=== PATIENT | female | born 1995 | race Two or more races ===

== ENCOUNTER → 2021-04-18 | Outpatient (CLI) | payer OTHER | END | disposition home or self-care (01) | LOC: PRENATAL 16:15 | PROVIDERS: ATTEND Obstetrics & Gynecology Maternal & Fetal Medicine | DX: Z36.89 Encounter for other specified antenatal screening (principal); O36.80X1 Pregnancy with inconclusive fetal viability, fetus 1; Z3A.13 13 weeks gestation of pregnancy ==

== ENCOUNTER 2021-05-30 13:08 | Outpatient (CLI) | payer OTHER | END 2021-05-30 14:09 | disposition home or self-care (01) | LOC: PRENATAL 13:08 | PROVIDERS: ATTEND Obstetrics & Gynecology Maternal & Fetal Medicine | DX: O35.0XX1 Maternal care for (suspected) central nervous system malformation in fetus, fetus 1 (principal); O35.3XX1 Maternal care for (suspected) damage to fetus from viral disease in mother, fetus 1; O98.512 Other viral diseases complicating pregnancy, second trimester; O28.1 Abnormal biochemical finding on antenatal screening of mother; Z36.89 Encounter for other specified antenatal screening; Z3A.19 19 weeks gestation of pregnancy ==

== ENCOUNTER 2021-08-22 12:43 | Outpatient (CLI) | payer OTHER | END 2021-08-22 13:41 | disposition home or self-care (01) | LOC: PRENATAL 12:43 | PROVIDERS: ATTEND Obstetrics & Gynecology Maternal & Fetal Medicine | DX: O35.0XX1 Maternal care for (suspected) central nervous system malformation in fetus, fetus 1 (principal); O35.3XX1 Maternal care for (suspected) damage to fetus from viral disease in mother, fetus 1; O98.513 Other viral diseases complicating pregnancy, third trimester; O28.1 Abnormal biochemical finding on antenatal screening of mother; O36.8131 Decreased fetal movements, third trimester, fetus 1; Z36.89 Encounter for other specified antenatal screening; Z3A.33 33 weeks gestation of pregnancy ==

== ENCOUNTER 2021-10-09 05:19 | Inpatient (IN) | payer OTHER ==
[~2021-10-09] VITALS: Ht 175.3 cm; Wt 77.1 kg
[2021-10-09] MEDS ORDERED: PRENATAL TABLE1 EAC1 PO (06:24)
[2021-10-10] MEDS ORDERED: RHOGAM ULTR1500 UNIT IM (07:03)
[2021-10-11] MEDS ORDERED: DERMOPLAST PAIN78 GM TOP (11:55)
[2021-10-11] MEDS ORDERED: HYDROCORTISO453.6 G1 RECTAL (11:55)
[2021-10-11] MEDS ORDERED: ACETAMINOPHEN325 M1 PO (11:55)
[2021-10-11] MEDS ORDERED: PRENATAL TABLE1 EAC1 PO (11:55)
== END 2021-10-11 13:06 | disposition home or self-care (01) | DRG 806 ==
LOC: OB/GYN 05:19 → LDR 05:19 → OB/GYN 11:57
PROVIDERS: ADMIT Specialist; ATTEND Specialist
PROC: 10E0XZZ Delivery of Products of Conception, External Approach (ICD-10-PCS; principal; 2021-10-09)
PROC: 0W8NXZZ Division of Female Perineum, External Approach (ICD-10-PCS; 2021-10-09)
PROC: 10907ZC Drainage of Amniotic Fluid, Therapeutic from Products of Conception, Via Natural or Artificial Opening (ICD-10-PCS; 2021-10-09)
PROC: 3E033VJ Introduction of Other Hormone into Peripheral Vein, Percutaneous Approach (ICD-10-PCS; 2021-10-09)
PROC: 4A1HXFZ Monitoring of Products of Conception, Cardiac Rhythm, External Approach (ICD-10-PCS; 2021-10-09)
DX: O99.824 Streptococcus B carrier state complicating childbirth (principal); O98.52 Other viral diseases complicating childbirth; A49.3 Mycoplasma infection, unspecified site; Z37.0 Single live birth; Z3A.39 39 weeks gestation of pregnancy

== ENCOUNTER 2024-12-09 18:47 | Emergency (ER) | payer OTHER ==
[~2024-12-09] VITALS: Ht 175.3 cm; Wt 63.0 kg
[~2024-12-09 18:47] MED LIST: ACETAMINOPHEN325 M1 PO; DERMOPLAST PAIN78 GM TOP; HYDROCORTISO453.6 G1 RECTAL; PRENATAL TABLE1 EAC1 PO; RHOGAM ULTR1500 UNIT IM
[2024-12-09] MEDS ORDERED: ENDOMETRIN100 MG (19:01)
[2024-12-09 19:57] LABS: HEMATOCRIT 35.3 % (36.0-45.00); HEMOGLOBIN 12.3 g/dL (12.0-15.00); MEAN CELL VOLUME 85.9 fL (80.00-100.00); MEAN CORPUSCULAR HGB CONC 34.9 g/dl (32.0-36.0); PLATELET COUNT 243 K/uL (150-450); RED BLOOD COUNT 4.11 M/uL (4.00-6.00); RED CELL DISTRIBUTION WIDTH 14.4 % (11.5-14.5)
[2024-12-09 20:50] LABS: CALCIUM 9.4 mg/dL (8.5-10.1); CREATININE SERUM 0.68 mg/dL (0.55-1.02); GFR 103.79; POTASSIUM 4.24 mEq/L (3.5-5.1)
== END 2024-12-09 23:57 | disposition home or self-care (01) ==
LOC: ER 18:49
PROVIDERS: Emergency Medicine
DX: O20.8 Other hemorrhage in early pregnancy (principal); Z3A.01 Less than 8 weeks gestation of pregnancy

== ENCOUNTER 2024-12-31 13:13 | Emergency (ER) | payer OTHER ==
[~2024-12-31] VITALS: Ht 165.1 cm; Wt 64.0 kg
[~2024-12-31 13:13] MED LIST changes: +ENDOMETRIN100 MG
[2024-12-31 16:09] LABS: HEMATOCRIT 35.5 % (36.0-45.00); HEMOGLOBIN 12.2 g/dL (12.0-15.00); MEAN CELL VOLUME 88.6 fL (80.00-100.00); MEAN CORPUSCULAR HEMOGLOBIN 30.5 pg (27.00-32.0); MEAN CORPUSCULAR HGB CONC 34.4 g/dl (32.0-36.0); PLATELET COUNT 230 K/uL (150-450); RED CELL DISTRIBUTION WIDTH 14.5 % (11.5-14.5)
[2024-12-31 16:42] LABS: PH,URINE 6.5 (5.0-8.0); URINE APPEARANCE Cloudy; URINE BILIRRUBIN Negative (NEGATIVE); URINE BLOOD Large; URINE COLOR Yellow; URINE GLUCOSE Negative (NEGATIVE); URINE KETONE Negative (NEGATIVE); URINE LEUKOCYTE Negative; URINE NITRATE Negative; URINE PROTEIN Negative (NEGATIVE)
[2024-12-31 16:46] LABS: URINE BACTERIA 63.6 uL (0.0-1933); URINE EPITHELIAL CELLS 15.1 uL (0.0-38.8); URINE RBC 16.4 uL (0.0-20.8); URINE WBC 12.3 uL (0.0-23.2)
== END 2024-12-31 18:18 | disposition home or self-care (01) ==
LOC: ER 13:15
PROVIDERS: General Practice
DX: O20.8 Other hemorrhage in early pregnancy (principal); Z3A.09 9 weeks gestation of pregnancy; N93.9 Abnormal uterine and vaginal bleeding, unspecified

== ENCOUNTER 2025-07-26 13:15 | Inpatient (IN) | payer OTHER ==
[~2025-07-26] VITALS: Ht 172.7 cm; Wt 78.0 kg
[2025-08-01 01:00] VITALS: BP 117/70
[2025-08-01 01:23] LABS: BASO % 0.3 % (0.1-1.2); EOS # 0.03 (0.04-0.54); EOS % 0.3 % (0.7-7.0); LYMPH # 1.95 (1.18-3.74); LYMPH % 19.1 % (19.3-53.1); MEAN PLATELET VOLUME 9.90 fl (9.4-12.4); MONO # 0.96 (0.24-0.82); MONO % 9.4 % (4.7-12.5); NEUT # 7.04 (1.56-6.13); NEUT % 68.7 % (34.0-71.1); RED CELL DISTRIBUTION WIDTH 13.2 % (11.6-14.4)
[2025-08-01 01:24] LABS: URINE APPEARANCE Clear; URINE BILIRRUBIN Negative (NEGATIVE); URINE BLOOD Negative; URINE COLOR Yellow; URINE GLUCOSE Negative (NEGATIVE); URINE KETONE Negative (NEGATIVE); URINE LEUKOCYTE Negative; URINE NITRATE Negative; URINE PROTEIN Negative (NEGATIVE); URINE UROBILINOGEN 0.2 E.U./dl
[2025-08-01 01:38] LABS: URINE BACTERIA 171.6 uL (0.0-1933); URINE CAST 0.00 uL (0.0-1.40); URINE EPITHELIAL CELLS 17.3 uL (0.0-38.8); URINE RBC 4.2 uL (0.0-20.8); URINE WBC 7.5 uL (0.0-23.2)
[2025-08-01 01:40] LABS: INR < 0.93
[2025-08-01] MEDS ORDERED: RINGERS SOLUTION,LACTATED 1,000 ML IV SCH (01:45)
[2025-08-01 01:46] LABS: ALT/SGPT 23.0 U/L (12-78); AST/SGOT 20.0 U/L (15-37); BILIRUBIN TOTAL 0.37 mg/dL (0.3-1.2); BUN CREA RATIO 17.0 (7.0-25.0); CREATININE SERUM 0.48 mg/dL (0.55-1.02); GFR 154.0; GLOBULINA 3.5 G/DL (2.4-3.5); GLUCOSE FASTING 82.0 mg/dL (65-100); OSMOLALITY SERUM 279.0 MOSM/KG (275-295)
[2025-08-01 03:16] VITALS: BP 106/67
[2025-08-01] MEDS ORDERED: OXYTOCIN 500 ML IV SCH (06:15)
[2025-08-01 07:42] VITALS: BP 108/65
[2025-08-01] MEDS ORDERED: CHLORHEXIDINE GLUCONATE 120 ML BOTTLE TOP ONE ×2 (08:28→10:15)
[2025-08-01] MEDS ORDERED: ERYTHROMYCIN BASE OPHT 1GM EACH TUBE OP ONE ×2 (08:28→10:15)
[2025-08-01] MEDS ORDERED: LIDOCAINE HCL 1% 10ML VIAL ONE (08:28)
[2025-08-01] MEDS ORDERED: OXYTOCIN 20 UNITS/1000ML RL PIGGYBAG IV ONE (08:28)
[2025-08-01] MEDS ORDERED: LIDOCAINE HCL 1% 10ML VIAL IJ ONE (10:15)
[2025-08-01] MEDS ORDERED: ACETAMINOPHEN 500 MG GEL..CAP PO PRN (10:15)
[2025-08-01] MEDS ORDERED: BENZOCAINE/MENTHOL 90 ML BOTTLE TOP SCH (13:00)
[2025-08-01] MEDS ORDERED: HYDROCORTISONE 2.5% 30 GM TUBE RECTAL SCH (13:00)
[2025-08-01 16:00] VITALS: BP 106/68
[2025-08-02 02:59] VITALS: BP 107/71
[2025-08-02 03:02] LABS: BASO % 0.2 % (0.1-1.2); EOS # 0.03 (0.04-0.54); EOS % 0.2 % (0.7-7.0); LYMPH # 2.04 (1.18-3.74); LYMPH % 16.1 % (19.3-53.1); MEAN PLATELET VOLUME 10.30 fl (9.4-12.4); MONO # 1.00 (0.24-0.82); MONO % 7.9 % (4.7-12.5); NEUT # 9.38 (1.56-6.13); NEUT % 74.3 % (34.0-71.1); RED CELL DISTRIBUTION WIDTH 13.2 % (11.6-14.4)
[2025-08-02 08:00] VITALS: BP 98/68
[2025-08-02 17:45] VITALS: BP 107/71
[2025-08-03 01:39] VITALS: BP 103/67
[2025-08-03] MEDS ORDERED: HYPERRHO S-1500 UNIT IM (05:52)
[2025-08-03] MEDS ORDERED: FF) RHO(D) IMMUNE GLOBULIN (POM) IM NR (06:00)
[2025-08-03 08:00] VITALS: BP 113/78
== END 2025-08-03 16:35 | disposition home or self-care (01) | DRG 807 ==
LOC: LDR 08-01 00:37 → OB/GYN 08-01 00:37
PROVIDERS: ADMIT Specialist; ATTEND Specialist
PROC: 10E0XZZ Delivery of Products of Conception, External Approach (ICD-10-PCS; principal; 2025-08-01)
PROC: 0UQMXZZ Repair Vulva, External Approach (ICD-10-PCS; 2025-08-01)
PROC: 0W8NXZZ Division of Female Perineum, External Approach (ICD-10-PCS; 2025-08-01)
PROC: 4A1HXCZ Monitoring of Products of Conception, Cardiac Rate, External Approach (ICD-10-PCS; 2025-08-01)
DX: O71.82 Other specified trauma to perineum and vulva (principal); Z37.0 Single live birth; O69.81X0 Labor and delivery complicated by cord around neck, without compression, not applicable or unspecified; Z3A.39 39 weeks gestation of pregnancy